=== PATIENT | female | born 1945 | race Caucasian/White ===

== ENCOUNTER 2016-06-07 08:58 | Emergency (ER) | payer MEDICARE, OTHER ==
[2016-06-07 09:22] VITALS: TEMP 99.1
[2016-06-07] MEDS ORDERED: ORPHENADRINE CITRATE 30 MG/ML AMP IM ONE (09:34)
[2016-06-07] MEDS ORDERED: ORPHENADRINE CITRATE 30 MG/ML AMP IV ONE (09:34)
--- NOTE | 2016-06-07 09:38 | ED.PDOC ---
History of Present Illness - General Chief Complaint: Neck Injury/Pain Stated Complaint: NECK AND SHOULDER STIFFNESS Time Seen by Provider: 06/07/16 09:30 Source: patient Exam Limitations: no limitations - History of Present Illness Initial Comments: Patient presents with three days of neck stiffness. She has had this problem before as she has degenerative vertebral disease. She has had a respiratory infection that she had been taking antibiotics for and she thinks the frequent coughing may have caused this exacerbation of neck stiffness. The stiffness is mostly posterior and on the right side. There is pain with rotation of the head as well as flexion and extension. The patient cannot extend the head beyond horizontal due to pain. No associated symptoms except for the cough. Timing/Duration: other - 3 days Severity: moderate Improving Factors: rest Worsening Factors: movement Associated Symptoms: denies symptoms Allergies/Adverse Reactions: Allergies Codeine Adverse Reaction (Verified 04/05/14 13:02) Home Medications: Ambulatory Orders Celecoxib [Celebrex] 100 mg PO BID 04/05/14 Coenzyme Q10 (Ubidecarenone) [Co Q-10] 100 mg PO DAILY 04/05/14 Ibuprofen-Diphenhydramine Citr [Motrin Pm 200-38 mg] 1 tab PO BEDTIME 04/05/14 Niacin [Niacin ER] 1,500 mg PO DAILY 04/05/14 Omeprazole [Prilosec Cap] 20 mg PO ACBK 04/05/14 Potassium 595 mg PO BEDTIME 04/05/14 Sennosides [Ex-Lax Maximum Strength] 50 mg PO BEDTIME 04/05/14 Azithromycin Tab [Zithromax Tab] 500 mg PO Q24H #4 tab 04/06/14 Ciclesonide (Nasal) [Omnaris] 50 mcg NA QAM #1 ml 04/06/14 HYDROcodone 5MG/APAP 325MG [Alvin 5/325] 1 - 2 ea PO Q6H #100 tab 04/06/14 Nebivolol HCl [Bystolic] 10 mg PO QAM #30 tab 04/06/14 Tramadol HCl [Ultram] 1 - 2 mg PO Q6H #30 tab 04/06/14 Cyclobenzaprine HCl [Flexeril] 10 mg PO TID #20 tab 06/07/16 Review of Systems - Review of Systems Constitutional: States: no symptoms reported EENTM: States: no symptoms reported Respiratory: States: see HPI Cardiology: States: no symptoms reported Gastrointestinal/Abdominal: States: no symptoms reported Genitourinary: States: no symptoms reported Musculoskeletal: States: see HPI Skin: States: no symptoms reported Neurological: States: no symptoms reported Endocrine: States: no symptoms reported Hematologic/Lymphatic: States: no symptoms reported Past Medical History (General) - Patient Medical History Hx Seizures: No Hx Stroke: No Hx Asthma: No Hx of COPD: No 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 Hx Congestive Heart Failure: No Hx Pacemaker: No Hx Hypertension: Yes Hx Diabetes: No Hx MRSA: No - Vaccination History Hx Influenza Vaccination: Yes Hx Pneumococcal Vaccination: Yes - Social History Hx Alcohol Use: Yes - wine 1-2 daily Hx Substance Use: No Hx Physical Abuse: No Hx Emotional Abuse: No Family Medical History - Family History Father Living Status: Hx Cardiac Disease: Yes Mother Living Status: Hx Cardiac Disease: Yes Physical Exam - Physical Exam General Appearance: Alert Respiratory: wheezing - scattered expiratory wheezing Cardiovascular/Chest: regular rate, rhythm Gastrointestinal/Abdominal: normal bowel sounds, non tender, soft Back Exam: other - rotation of the head past 15 degrees bilaterally elicits pain. Patient can flex the head but cannot touch the chin to the chest due to pain. Patient cannot extend the head above horizontal. Progress - Progress Progress: 06/07/16 10:11 Norflex 60 mg IM x one helped significantly. Patient discharged with flexeril RX and orders to use heat and massage bid until healed. Departure - Departure Clinical Impression: Neck muscle strain Disposition: Discharge to Home or Self Care Condition: Good Departure Forms: ED Discharge - Pt. Copy, Patient Portal Self Enrollment Diet: resume usual diet Activity: increase activity as tolerated Prescriptions: Cyclobenzaprine HCl [Flexeril] 10 mg PO TID #20 tab Home Medications: Ambulatory Orders Celecoxib [Celebrex] 100 mg PO BID 04/05/14 Coenzyme Q10 (Ubidecarenone) [Co Q-10] 100 mg PO DAILY 04/05/14 Ibuprofen-Diphenhydramine Citr [Motrin Pm 200-38 mg] 1 tab PO BEDTIME 04/05/14 Niacin [Niacin ER] 1,500 mg PO DAILY 04/05/14 Omeprazole [Prilosec Cap] 20 mg PO ACBK 01/13/15 Potassium 595 mg PO BEDTIME 04/05/14 Sennosides [Ex-Lax Maximum Strength] 50 mg PO BEDTIME 04/05/14 Azithromycin Tab [Zithromax Tab] 500 mg PO Q24H #4 tab 04/06/14 Ciclesonide (Nasal) [Omnaris] 50 mcg NA QAM #1 ml 04/06/14 HYDROcodone 5MG/APAP 325MG [Alvin 5/325] 1 - 2 ea PO Q6H #100 tab 04/06/14 Nebivolol HCl [Bystolic] 10 mg PO QAM #30 tab 04/06/14 Tramadol HCl [Ultram] 1 - 2 mg PO Q6H #30 tab 04/06/14 Cyclobenzaprine HCl [Flexeril] 10 mg PO TID #20 tab 06/07/16 Additional Instructions: Take medication as prescribed. Apply heat and massage to the affected area twice per day until healed. Return to your regular doctor if symptoms are not resolved in two weeks.
[2016-06-07 19:47] VITALS: BP 158/90; O2SAT 97
== END 2016-06-07 10:37 | disposition home or self-care (01) ==
LOC: ER 08:58
DX: S16.1XXA Strain of muscle, fascia and tendon at neck level, initial encounter (principal); I25.2 Old myocardial infarction; I10 Essential (primary) hypertension; M47.9 Spondylosis, unspecified; Z98.61 Coronary angioplasty status; Z88.6 Allergy status to analgesic agent; Z79.899 Other long term (current) drug therapy; X58.XXXA Exposure to other specified factors, initial encounter

== ENCOUNTER → 2017-03-05 | Outpatient (CLI) | payer MEDICARE, OTHER | LOC: GMAH 17:11 | PROVIDERS: ATTEND Family Medicine | DX: R53.83 Other fatigue (principal); E55.9 Vitamin D deficiency, unspecified; R51 Headache; M25.50 Pain in unspecified joint; D51.3 Other dietary vitamin B12 deficiency anemia ==

== ENCOUNTER → 2017-08-28 | Outpatient (CLI) | payer MEDICARE, OTHER | LOC: GMATM 16:43 | PROVIDERS: ATTEND Nurse Practitioner Family | DX: R42 Dizziness and giddiness (principal) ==

== ENCOUNTER 2018-02-05 11:35 | Emergency (ER) | payer MEDICARE, OTHER ==
[2018-02-05 11:49] VITALS: BP 143/77; TEMP 97.4; O2SAT 97
--- NOTE | 2018-02-05 11:56 | ED.PDOC ---
History of Present Illness - General Chief Complaint: Neck Injury/Pain Stated Complaint: neck spasms x 3 days Time Seen by Provider: 02/05/18 11:55 Source: patient Exam Limitations: no limitations - History of Present Illness Initial Comments: Karla Manrique 73 y/o female came to er with painful muscle spasm on her neck radiating to both shoulders;denies achy throat,chest pains,sob .Had same symptoms in the past and came to er .Had MRI -Neck by her Md stated that mostly degenerative disc on her neck. Timing/Duration: constant, other - 3 days Severity: moderate Associated Symptoms: other - see hpi Allergies/Adverse Reactions: Allergies Codeine Adverse Reaction (Verified 02/05/18 11:49) Nausea Home Medications: Ambulatory Orders RX: Celecoxib [Celebrex] 100 mg PO BID 04/05/14 RX: Coenzyme Q10 (Ubidecarenone) [Co Q-10] 100 mg PO DAILY 04/05/14 RX: Ibuprofen-Diphenhydramine Citr [Motrin Pm 200-38 mg] 1 tab PO BEDTIME RX: Niacin [Niacin ER] 1,500 mg PO DAILY 04/05/14 RX: Omeprazole [Prilosec Cap] 20 mg PO ACBK 04/05/14 RX: Potassium 595 mg PO BEDTIME 04/05/14 RX: Sennosides [Ex-Lax Maximum Strength] 50 mg PO BEDTIME 04/05/14 Ciclesonide (Nasal) [Omnaris] 50 mcg NA QAM #1 ml 04/06/14 Nebivolol HCl [Bystolic] 10 mg PO QAM #30 tab 04/06/14 RX: Azithromycin Tab [Zithromax Tab] 500 mg PO Q24H #4 tab 04/06/14 RX: HYDROcodone 5MG/APAP 325MG [Bowen 5/325] 1 - 2 ea PO Q6H #100 tab 04/06/14 Tramadol HCl [Ultram] 1 - 2 mg PO Q6H #30 tab 04/06/14 Cyclobenzaprine HCl [Flexeril] 10 mg PO TID #20 tab 06/07/16 Carisoprodol [Soma] 350 mg PO TID PRN #30 tab 02/05/18 Review of Systems - Review of Systems Constitutional: States: no symptoms reported EENTM: States: no symptoms reported Respiratory: States: no symptoms reported Cardiology: States: no symptoms reported Gastrointestinal/Abdominal: States: no symptoms reported Genitourinary: States: no symptoms reported Musculoskeletal: States: see HPI, neck pain Past Medical History (General) - Patient Medical History Hx Seizures: No Hx Stroke: No Hx Asthma: No Hx of COPD: No Hx Cardiac Disorders: Yes - SD Hx Congestive Heart Failure: No Hx Pacemaker: No Hx Hypertension: Yes Hx Diabetes: No Hx MRSA: No Surgical History: coronary bypass surgery, other - lumbar spine,knee, hysterectomy, - Vaccination History Hx Influenza Vaccination: Yes - 2017 Hx Pneumococcal Vaccination: Yes - Social History Hx Tobacco Use: No Hx Alcohol Use: Yes Hx Substance Use: No Hx Physical Abuse: No Hx Emotional Abuse: No Family Medical History - Family History Father Living Status: Hx Cardiac Disease: Yes Hx Family Cancer: Yes - breast -mom Mother Living Status: Hx Cardiac Disease: Yes Physical Exam - Physical Exam General Appearance: Alert, Comfortable Eye Exam: bilateral normal Ears, Nose, Throat: hearing grossly normal, normal ENT inspection, normal pharynx Neck: normal inspection, limited range of motion - due to muscle spasm on flexion and left lateral rotation Respiratory: chest non-tender, lungs clear, normal breath sounds, no respiratory distress Cardiovascular/Chest: normal peripheral pulses, regular rate, rhythm, no edema, no gallop, diastolic murmur - g 2/6 2nd ICS Peripheral Pulses: radial,right: 2+, radial,left: 2+ Gastrointestinal/Abdominal: non tender, soft, no organomegaly Back Exam: no CVA tenderness, no vertebral tenderness Extremity: normal range of motion, non-tender, no pedal edema, no calf tenderness Neurologic: no motor/sensory deficits, alert, oriented x 3 Skin Exam: normal color, warm/dry Progress - Progress Progress: 02/05/18 12:14 Vital Signs - 8 hr 02/05/18 11:47 Temperature 97.4 F L Pulse Rate [ 88 monitor] Respiratory 18 Rate Blood Pressure 143/77 [Right Arm] O2 Sat by Pulse 97 Oximetry Departure - Departure Clinical Impression: Muscle spasms of neck Time of Disposition: 12:14 Disposition: Discharge to Home or Self Care Departure Forms: ED Discharge - Pt. Copy, Patient Portal Self Enrollment Instructions: Muscle Spasms (DC) Referrals: Valentino Masterson MD [Primary Care Provider] - 1-2 Weeks Prescriptions: Carisoprodol [Soma] 350 mg PO TID PRN #30 tab PRN Reason: Muscle Spasms Home Medications: Ambulatory Orders RX: Celecoxib [Celebrex] 100 mg PO BID 04/05/14 RX: Coenzyme Q10 (Ubidecarenone) [Co Q-10] 100 mg PO DAILY 04/05/14 RX: Ibuprofen-Diphenhydramine Citr [Motrin Pm 200-38 mg] 1 tab PO BEDTIME RX: Niacin [Niacin ER] 1,500 mg PO DAILY 04/05/14 RX: Omeprazole [Prilosec Cap] 20 mg PO ACBK 04/05/14 RX: Potassium 595 mg PO BEDTIME 04/05/14 RX: Sennosides [Ex-Lax Maximum Strength] 50 mg PO BEDTIME 04/05/14 Ciclesonide (Nasal) [Omnaris] 50 mcg NA QAM #1 ml 04/06/14 Nebivolol HCl [Bystolic] 10 mg PO QAM #30 tab 04/06/14 RX: Azithromycin Tab [Zithromax Tab] 500 mg PO Q24H #4 tab 04/06/14 RX: HYDROcodone 5MG/APAP 325MG [Bowen 5/325] 1 - 2 ea PO Q6H #100 tab 04/06/14 Tramadol HCl [Ultram] 1 - 2 mg PO Q6H #30 tab 04/06/14 Cyclobenzaprine HCl [Flexeril] 10 mg PO TID #20 tab 06/07/16 Carisoprodol [Soma] 350 mg PO TID PRN #30 tab 02/05/18 Additional Instructions: Follow up with primary Md 10 february 2018;Return to ER as needed
[2018-02-05] MEDS ORDERED: diazePAM 5 MG TAB PO ONE (12:10)
[2018-02-05] MEDS ORDERED: KETOROLAC TROMETHAMINE INJ 30 MG/ML VIAL IM ONE (12:10)
[2018-02-05] MEDS ORDERED: ORPHENADRINE CITRATE 30 MG/ML AMP IM ONE (12:10)
== END 2018-02-05 12:35 | disposition home or self-care (01) ==
LOC: ER 11:35
DX: M62.838 Other muscle spasm (principal); M50.30 Other cervical disc degeneration, unspecified cervical region; I10 Essential (primary) hypertension; I25.2 Old myocardial infarction; Z95.1 Presence of aortocoronary bypass graft; Z79.899 Other long term (current) drug therapy; Z88.5 Allergy status to narcotic agent
CPT/HCPCS: J1885; J2360

== ENCOUNTER → 2018-06-10 | Outpatient (CLI) | payer MEDICARE, OTHER ==
--- NOTE | 2018-06-15 13:19 | MAM ---
EXAM DESCRIPTION: 3D Screening BILATERAL : Digital Mammography. CLINICAL HISTORY: 73 years Female ANNUAL SCREENING . No complaints or personal history of breast cancer. Mother with breast cancer. Childbirth. Hysterectomy 40 years ago. Taken HRT 5 or more years ago. Prior benign left breast biopsy. Lifetime risk of developing breast cancer (Tyrer-Cuzick model)(%): 7.0. COMPARISON: Baseline study at this facility.. No prior reports available. TECHNIQUE: Bilateral CC and MLO projection full-field images, digital tomosynthesis mammographic technique. Bilateral digital 2-D full-field MLO images. CAD not available for tomosynthesis or 2-D images. FINDINGS: The breast parenchymal density pattern is: Heterogeneously dense breast tissue, which may obscure small masses. Extremely dense breast tissue, which lowers the sensitivity of mammography. No skin thickening or nipple retraction. Bilateral axillary lymph nodes. Bilateral diffusely scattered solitary microcalcifications. Partially circumscribed mass density versus focal asymmetry at the 8:30 clock position of the lateral right periareolar tissues. Focal asymmetry directly posterior to the nipple of the left breast and also at the 7:00 position in the periareolar soft tissues. No suspicious microcalcifications bilaterally. IMPRESSION: BI-RADS CATEGORY: 0 - INCOMPLETE- Need additional imaging evaluation. FOLLOW-UP: Recall for additional imaging: Targeted ultrasound bilateral breasts, regions of interest described. In the findings. Diagnostic mammographic imaging bilaterally if indicated by ultrasound findings. Written communication concerning the IMPRESSION and Follow-up, will be mailed to the patient and referring health care provider. Electronically signed by: Brandyn Edmonds MD 06/15/2018 1:16 PM CDT
== END ==
LOC: RAD 11:20
PROVIDERS: ATTEND Surgery
DX: Z12.31 Encounter for screening mammogram for malignant neoplasm of breast (principal)

== ENCOUNTER → 2019-03-01 | Outpatient (CLI) | payer MEDICARE, OTHER ==
--- NOTE | 2019-03-01 13:02 | CT ---
EXAM DESCRIPTION: Chest w/wo Contrast CLINICAL HISTORY: ACUTE UPPER RESPIRATORY INFECTION COMPARISON: None. TECHNIQUE: Pre and postcontrast CT images of the chest are obtained using standard imaging protocol. This exam was performed according to our departmental dose-optimization program, which includes automated exposure control, adjustment of the mA and/or kV according to patient size and/or use of iterative reconstruction technique . FINDINGS: Heart is enlarged. Postsurgical changes from CABG are seen. Incomplete osseous fusion of the lower aspect of the sternotomy. No pathologically enlarged mediastinal, hilar, or axillary lymphadenopathy. No pleural or pericardial effusion. Visualized upper abdomen shows heterogeneous decreased attenuation of the liver compared to the spleen with enlarged liver measuring 18.2 cm. Spleen is borderline enlarged measuring 12.5 cm. Small hiatal hernia. The lungs are normally aerated. Mild centrilobular emphysematous changes are seen. Interstitial thickening in the posterior lower lobes bilaterally could represent dependent atelectasis. No acute appearing infiltrate or consolidation. No significant bronchiectasis. Mild interstitial thickening in the inferior medial aspect of the right middle lobe. Osseous structures show no aggressive bony lesions. Moderate spondylitic changes of the spine are seen. IMPRESSION: Mild emphysematous changes to lungs are seen. Probable dependent atelectasis in the lower lobes bilaterally. Linear areas of probable scarring are seen in the right middle lobe. Cardiomegaly. Hepatomegaly with diffuse fatty infiltration of the liver. Other findings as described above. Electronically signed by: Dillon Wayne MD 03/01/2019 1:00 PM RECOVERY ENGINEER
== END ==
LOC: CT 10:00
PROVIDERS: ATTEND Family Medicine
DX: J06.9 Acute upper respiratory infection, unspecified (principal); J43.9 Emphysema, unspecified; R91.8 Other nonspecific abnormal finding of lung field; I51.7 Cardiomegaly; K76.0 Fatty (change of) liver, not elsewhere classified

== ENCOUNTER → 2019-04-22 | Outpatient (CLI) | payer MEDICARE, OTHER | LOC: GMA MATASK 10:34 | PROVIDERS: ATTEND Family Medicine | DX: N39.0 Urinary tract infection, site not specified (principal) ==

== ENCOUNTER → 2019-10-05 | Outpatient (CLI) | payer MEDICARE, OTHER | LOC: GMA MATASK 14:21 | PROVIDERS: ATTEND Family Medicine | DX: E78.2 Mixed hyperlipidemia (principal); R73.01 Impaired fasting glucose ==

== ENCOUNTER 2020-04-14 15:53 | Emergency (ER) | payer MEDICARE, OTHER ==
[2020-04-14] MEDS ORDERED: KETOROLAC TROMETHAMINE INJ 30 MG/ML VIAL IM ONE (16:09)
[2020-04-14] MEDS ORDERED: diazePAM 5 MG TAB PO ONE (16:09)
[2020-04-14] MEDS ORDERED: MORPHINE SULFATE INJ 10 MG/ML VIAL IM ONE (16:09)
--- NOTE | 2020-04-14 16:13 | ED.PDOC ---
History of Present Illness - General Chief Complaint: Back Pain or Injury Stated Complaint: back and leg pain Time Seen by Provider: 04/14/20 16:00 - History of Present Illness Initial Comments: 75-year-old female positive past medical history with chronic back pain presents with to ED complaining of cute exacerbation of her chronic back pain. Patient states about 2 to 3 days ago she was lifting very small twigs in the backyard and believes that is what started her pain. She denies any acute trauma or injury though. She denies associated radiation of pain, saddle paresthesia, urinary/bowel retention/incontinence, nausea/vomiting, fever/chills, abdominal pain, diarrhea, constipation, dysuria. Patient does see a pain management doctor and is due to get a pain stimulator placed in her back in the near future. Denies alleviating factors. Positive history of similar symptoms. No other signs symptoms complaints at this time. Allergies/Adverse Reactions: Allergies Codeine Adverse Reaction (Verified 02/05/18 11:49) Nausea Home Medications: Ambulatory Orders Niacin [Niacin ER] 500 mg PO TID 04/05/14 Omeprazole [Prilosec Cap] 20 mg PO ACBK 04/05/14 Potassium Gluconate [Potassium] 595 mg PO TID 04/05/14 Nebivolol HCl [Bystolic] 10 mg PO QAM #30 tab 04/06/14 Aspirin [Aspirin Adult Low Dose] 81 mg PO DAILY 04/14/20 B-Complex W/Biotin & Folic Aci [Super B-Complex] 1 tab PO DAILY 04/14/20 Cefprozil 500 mg PO DAILY 04/14/20 Chlorzoxazone [Parafon Forte DSC] 500 mg PO PRN 04/14/20 Cyanocobalamin Inj [Vitamin B-12 Inj] 1,000 mcg IM MONTHLY 04/14/20 Exlax 1 each PO DAILY 04/14/20 Fexofenadine HCl [Veronica Allergy] 180 mg PO PRN 04/14/20 Furosemide [Lasix] 20 mg PO BID 04/14/20 Gabapentin 300 mg PO QID 04/14/20 HYDROcodone 10MG/APAP 325MG [Godley 10/325] 1 ea PO BID 04/14/20 Pravastatin Sodium 80 mg PO DAILY 04/14/20 [employer] C 1 each PO DAILY 04/14/20 Review of Systems - Review of Systems Constitutional: Denies: chills, fever Respiratory: Denies: cough, short of breath Cardiology: Denies: chest pain, edema Gastrointestinal/Abdominal: States: other - no retention/incontinence. Denies: abdominal pain, constipation, diarrhea, nausea, vomiting Genitourinary: States: other - no retention/incontinence. Denies: dysuria, frequency Musculoskeletal: States: back pain. Denies: joint swelling, neck pain Skin: States: change in color. Denies: rash Neurological: Denies: headache, numbness, paresthesia, weakness Past Medical History (General) - Patient Medical History Hx Seizures: No Hx Stroke: No Hx Asthma: No Hx of COPD: No Hx Cardiac Disorders: Yes - [place] Hx Congestive Heart Failure: No Hx Pacemaker: No Hx Hypertension: Yes Hx Diabetes: No Hx MRSA: No Surgical History: coronary bypass surgery - Vaccination History Hx Influenza Vaccination: Yes Hx Pneumococcal Vaccination: Yes - Social History Hx Tobacco Use: Yes Hx Alcohol Use: Yes Hx Substance Use: No Hx Physical Abuse: No Hx Emotional Abuse: No Family Medical History - Family History Father Living Status: Hx Cardiac Disease: Yes Hx Family Cancer: Yes - breast -mom Mother Living Status: Hx Cardiac Disease: Yes Physical Exam - Physical Exam General Appearance: Alert, Other - mild distress, non-toxic Eyes, Ears, Nose, Throat Exam: normal ENT inspection Neck Exam: full range of motion, other - supple Cardiovascular/Respiratory: regular rate, rhythm, no M/R/G, normal peripheral pulses, no JVD, normal breath sounds, no respiratory distress Gastrointestinal/Abdominal: normal bowel sounds, non tender, soft, no pulsatile mass, other - no rebound, no guarding Back Exam: no CVA tenderness, no vertebral tenderness, other - + bilateral SI joint TTP, no lumbar midline or paraspinous musculature TTP, no spasm, no deformity, no crepitance Extremity Exam: no evidence of injury, normal range of motion, non-tender, no pedal edema, other - strength/motor/sensation intact distally, gait without acute findings Neurologic: no motor/sensory deficits - BLE distally intact, symmetric, alert, normal mood/affect, oriented x 3 Skin Exam: normal color, warm/dry, other - no rash Progress - Progress Progress: Norberto Hartman DO Emergency Medicine Physician [id number] Appropriate PPE of surgical mask, gown, gloves, and eye protection (if encounter >5 minutes) utilized with every patient encounter; in accordance with hospital policy. Presents for acute exacerbation of chronic low back pain. Low clinical concern for Any emergent cause for her back pain including but not limited to: Cauda equina, epidural hematoma/abscess, aortic pathology, discitis, transverse myelitis. Patient has no red flags for her back pain. I will perform imaging, provide appropriate pharmacotherapy, and continue to monitor/reassess. Dispo will depend on imaging results and overall course in ED; however, discharge home is expected with f/u, education, and possible rx. 17:41 Rechecked pt with family member at bedside. NAD, VSS, and is feeling much better with greatly improved pain. I have discussed radiology results, my clinical impression, and diagnosis. I have also discussed plan for discharge home with f/u, education, and use of OTC Ibuprofen/Aleve as well as cryotherapy for pain control and her current pain medications at home (muscle relaxer + Godley 10's + lidocaine cream). ED return precautions provided. Pt and family member voice understanding, agree with plan, and all questions answered. - Results/Orders Results/Orders: EXAM DESCRIPTION: Lumbar Spine 3 Views CLINICAL HISTORY: 75 years Female, low back pain COMPARISON: None. Findings: 3 view(s)/radiograph(s) L3-L5 posterior construct with interbody fusion. No hardware complication. Suspect solid osseous bridging. Osteopenia. Atherosclerotic disease. Marked multilevel curyung disc space narrowing with marginal osteophytes and facet hypertrophy. No acute fra cture or subluxation identified. IMPRESSION: Postoperative lumbar spine. No evidence of acute process. Electronically signed by: Dominic Stone MD 04/14/2020 4:42 PM GLOBAL MARKETING SPECIALIST Vital Signs - 24 hr 04/14/20 16:07 Temperature 98.2 F Pulse Rate [ 77 Left Brachial] Respiratory 20 Rate Blood Pressure 143/74 [Left Arm] O2 Sat by Pulse 95 Oximetry Departure - Departure Clinical Impression: Acute exacerbation of chronic low back pain Time of Disposition: 17:45 Disposition: Discharge to Home or Self Care Condition: Excellent Departure Forms: ED Discharge - Pt. Copy, Patient Portal Self Enrollment Instructions: DI for Low Back Pain, Low Back Pain (DC), Back Muscle Strain (DC) Referrals: Miguelangel Borrero MD [Primary Care Provider] - 1-2 Weeks Your, Drawing Kiln Operator [Other] - 1-2 Weeks (Call to discuss ED visit and follow up.) Home Medications: Ambulatory Orders Niacin [Niacin ER] 500 mg PO TID 04/05/14 Omeprazole [Prilosec Cap] 20 mg PO ACBK 04/05/14 Potassium Gluconate [Potassium] 595 mg PO TID 04/05/14 Nebivolol HCl [Bystolic] 10 mg PO QAM #30 tab 04/06/14 Aspirin [Aspirin Adult Low Dose] 81 mg PO DAILY 04/14/20 B-Complex W/Biotin & Folic Aci [Super B-Complex] 1 tab PO DAILY 04/14/20 Cefprozil 500 mg PO DAILY 04/14/20 Chlorzoxazone [Parafon Forte DSC] 500 mg PO PRN 04/14/20 Cyanocobalamin Inj [Vitamin B-12 Inj] 1,000 mcg IM MONTHLY 04/14/20 Exlax 1 each PO DAILY 04/14/20 Fexofenadine HCl [Veronica Allergy] 180 mg PO PRN 04/14/20 Furosemide [Lasix] 20 mg PO BID 04/14/20 Gabapentin 300 mg PO QID 04/14/20 HYDROcodone 10MG/APAP 325MG [Godley 10/325] 1 ea PO BID 04/14/20 Pravastatin Sodium 80 mg PO DAILY 04/14/20 [employer] C 1 each PO DAILY 04/14/20
--- NOTE | 2020-04-14 16:43 | RAD ---
EXAM DESCRIPTION: Lumbar Spine 3 Views CLINICAL HISTORY: 75 years Female, low back pain COMPARISON: None. Findings: 3 view(s)/radiograph(s) L3-L5 posterior construct with interbody fusion. No hardware complication. Suspect solid osseous bridging. Osteopenia. Atherosclerotic disease. Marked multilevel clark's point disc space narrowing with marginal osteophytes and facet hypertrophy. No acute fracture or subluxation identified. IMPRESSION: Postoperative lumbar spine. No evidence of acute process. Electronically signed by: Dominic Stone MD 04/14/2020 4:42 PM [facility]
[2020-04-14 17:56] VITALS: BP 124/67; TEMP 97.9; O2SAT 97
== END 2020-04-14 17:55 | disposition home or self-care (01) ==
LOC: ER 15:53
DX: M54.5 Low back pain (principal); G89.29 Other chronic pain; M85.80 Other specified disorders of bone density and structure, unspecified site; I25.2 Old myocardial infarction; I10 Essential (primary) hypertension; Z98.890 Other specified postprocedural states; Z95.1 Presence of aortocoronary bypass graft; Z87.891 Personal history of nicotine dependence; Z79.899 Other long term (current) drug therapy; Z79.82 Long term (current) use of aspirin; Z88.5 Allergy status to narcotic agent
CPT/HCPCS: 72100; J1885; J2270

== ENCOUNTER 2020-04-15 08:37 | Emergency (ER) | payer MEDICARE, OTHER ==
[2020-04-15 08:59] VITALS: TEMP 97.5
[2020-04-15] MEDS ORDERED: KETOROLAC TROMETHAMINE INJ 30 MG/ML VIAL IM ONE (08:59)
[2020-04-15] MEDS ORDERED: HYDROmorphone HCL INJ 2 MG/ML VIAL IM ONE (08:59)
--- NOTE | 2020-04-15 09:03 | ED.PDOC ---
History of Present Illness - General Chief Complaint: Back Pain or Injury Stated Complaint: lower back pain Time Seen by Provider: 04/15/20 08:39 Source: patient, RN notes reviewed, Vital Signs reviewed, family, old records Exam Limitations: no limitations - History of Present Illness Initial Comments: 75-year-old femalewith chronic back pain presents with to ED complaining worsening back pain. states she fell a week ago onto her back, was put on steroids by her pcp. Was seen here yesterday given morphine, toradol and valium which helped for about 3 hours. Has an appointment with pain management in 3 days. Is currently on gabapentin, muscle relaxer and opiates, but can't get the pain under control. Pain was exacerbated by lifting small twigs 3-4 days ago. n o fever. She denies saddle paresthesia, bowel retention/incontinence, nausea/vomiting, fever/chills, abdominal pain. last BM yesterday, not black or bloody. She does note when she urinates the past few days, it is dribbling. States she urinates "slow", and has to push on her bladder. This is new. Pain does radiate to her bilateral posterior thighs. No position seems to make it better. worse with sitting, lying. Allergies/Adverse Reactions: Allergies Codeine Adverse Reaction (Verified 04/15/20 08:54) Nausea Home Medications: Ambulatory Orders Niacin [Niacin ER] 500 mg PO TID 04/05/14 Omeprazole [Prilosec Cap] 20 mg PO ACBK 04/05/14 Potassium Gluconate [Potassium] 595 mg PO TID 04/05/14 Nebivolol HCl [Bystolic] 10 mg PO QAM #30 tab 04/06/14 Aspirin [Aspirin Adult Low Dose] 81 mg PO DAILY 04/14/20 B-Complex W/Biotin & Folic Aci [Super B-Complex] 1 tab PO DAILY 04/14/20 Cefprozil 500 mg PO DAILY 04/14/20 Chlorzoxazone [Parafon Forte DSC] 500 mg PO PRN 04/14/20 Cyanocobalamin Inj [Vitamin B-12 Inj] 1,000 mcg IM MONTHLY 04/14/20 Exlax 1 each PO DAILY 04/14/20 Fexofenadine HCl [Veronica Allergy] 180 mg PO PRN 04/14/20 Furosemide [Lasix] 20 mg PO BID 04/14/20 Gabapentin 300 mg PO QID 04/14/20 HYDROcodone 10MG/APAP 325MG [Guinda [id number]] 1 ea PO BID 04/14/20 Pravastatin Sodium 80 mg PO DAILY 04/14/20 [employer] C 1 each PO DAILY 04/14/20 Review of Systems - Review of Systems Constitutional: Denies: chills, fever EENTM: Denies: blurred vision Respiratory: Denies: cough, short of breath Cardiology: Denies: chest pain Gastrointestinal/Abdominal: Denies: abdominal pain, nausea Genitourinary: Denies: discharge Musculoskeletal: States: back pain. Denies: muscle pain, neck pain Skin: Denies: rash Neurological: Denies: headache, numbness, paresthesia, tremors, weakness Endocrine: Denies: unexplained weight gain, unexplained weight loss Hematologic/Lymphatic: Denies: easy bleeding, easy bruising Past Medical History (General) - Patient Medical History Hx Seizures: No Hx Stroke: No Hx Asthma: No Hx of COPD: No Hx Cardiac Disorders: Yes - MD Hx Congestive Heart Failure: No Hx Pacemaker: No Hx Hypertension: Yes Hx Diabetes: No Hx MRSA: No - Vaccination History Hx Influenza Vaccination: Yes Hx Pneumococcal Vaccination: Yes - Social History Hx Tobacco Use: Yes Hx Alcohol Use: Yes Hx Substance Use: No Hx Physical Abuse: No Hx Emotional Abuse: No Family Medical History - Family History Father Living Status: Hx Cardiac Disease: Yes Hx Family Cancer: Yes - breast -mom Mother Living Status: Hx Cardiac Disease: Yes Physical Exam - Physical Exam General Appearance: Alert, Anxious, Comfortable, Well Developed, Well Groomed, Well Hydrated, Well Nourished Eyes, Ears, Nose, Throat Exam: normal ENT inspection, TMs normal Neck Exam: non-tender, full range of motion, normal alignment, normal inspection Cardiovascular/Respiratory: regular rate, rhythm, no M/R/G, normal peripheral pulses, no JVD, normal breath sounds, no respiratory distress Peripheral Pulses: radial,right: 2+, radial,left: 2+, dorsalis pedis,right: 2+, dorsalis pedis,left: 2+, posterior tibialis,right: 2+, posterior tibialis,left: 2+ Gastrointestinal/Abdominal: normal bowel sounds, non tender, soft Back Exam: normal inspection, no CVA tenderness, vertebral tenderness - L4-5, other - bilateral SI joint pain. Extremity Exam: no evidence of injury, normal range of motion, non-tender, no pedal edema, other - negative straight leg test. Neurologic: no motor/sensory deficits, alert, normal mood/affect, oriented x 3, other - achilles left 2/4, achilles right 1/4, patellar 2/4 bilaterally. antalgic gait. Skin Exam: normal color, warm/dry Progress - Progress Progress: 04/15/20 09:18 partial ddx considered: Cauda equina, epidural hematoma, AAA, discitis, transverse myelitis, UTI, OA, Sciatica, muscle spasm, others. patient given 1 mg dilaudid and toradol IM for pain. Pain improved with medications. Beside US shows bladder with 577 ml. Patient urinated 100 ml, PVR on ultrasound 470 ml. Due to acute urinary retention in the presence of severe back pain will transfer for MRI to rule out cauda equina or nerve compression. The data reviewed when caring for this patient included: nurse notes, prior records, etc. The history and assessments from nurses notes were reviewed and considered, and the patient's home medication list was also reviewed and considered. My assessment and the results of testing completed here in the ED were discussed with the patient/family. All questions were answered, and they express understanding of my assessment and the plan. She was transferred to [facility] in stable condition. Susan Durant DO #[id number] 04/15/20 11:05 04/15/20 11:24 - EKG/XRAY/CT CT: artifact from prior surgery no acute pathology noted pending radiology read CT Ordered: Yes Departure - Departure Clinical Impression: Urinary retention Back pain Qualifiers: Back pain location: low back pain Chronicity: acute Back pain laterality: midline Sciatica presence: without sciatica Qualified Code(s): M54.5 - Low back pain Disposition: Transfer to Hospital Departure Forms: ED Discharge - Pt. Copy, Patient Portal Self Enrollment Instructions: DI for Low Back Pain Referrals: Miguelangel Borrero MD [Primary Care Provider] - 1-2 Weeks Home Medications: Ambulatory Orders Niacin [Niacin ER] 500 mg PO TID 04/05/14 Omeprazole [Prilosec Cap] 20 mg PO ACBK 01/13/15 Potassium Gluconate [Potassium] 595 mg PO TID 04/05/14 Nebivolol HCl [Bystolic] 10 mg PO QAM #30 tab 04/06/14 Aspirin [Aspirin Adult Low Dose] 81 mg PO DAILY 04/14/20 B-Complex W/Biotin & Folic Aci [Super B-Complex] 1 tab PO DAILY 04/14/20 Cefprozil 500 mg PO DAILY 04/14/20 Chlorzoxazone [Parafon Forte DSC] 500 mg PO PRN 04/14/20 Cyanocobalamin Inj [Vitamin B-12 Inj] 1,000 mcg IM MONTHLY 04/14/20 Exlax 1 each PO DAILY 04/14/20 Fexofenadine HCl [Veronica Allergy] 180 mg PO PRN 04/14/20 Furosemide [Lasix] 20 mg PO BID 04/14/20 Gabapentin 300 mg PO QID 04/14/20 HYDROcodone 10MG/APAP 325MG [Guinda 10/325] 1 ea PO BID 04/14/20 Pravastatin Sodium 80 mg PO DAILY 04/14/20 [place] [employer] C 1 each PO DAILY 04/14/20 Transfer to Outside Facility - Transfer Information Decision to Transfer Date: 04/15/20 Decision to Transfer Time: 09:35 Reason for Transfer: specialized care not available - MRI [facility]
[2020-04-15 14:38] VITALS: BP 118/67; O2SAT 98
== END 2020-04-15 12:05 | disposition short-term general hospital (02) ==
LOC: ER 08:37
DX: M54.5 Low back pain (principal); R33.9 Retention of urine, unspecified; I25.2 Old myocardial infarction; I10 Essential (primary) hypertension; Z87.891 Personal history of nicotine dependence; Z79.899 Other long term (current) drug therapy; Z79.82 Long term (current) use of aspirin; Z88.5 Allergy status to narcotic agent
CPT/HCPCS: 72131; 81001; 87086; J1170; J1885